=== PATIENT | female | born 1990 | race Caucasian/White ===

== ENCOUNTER 2019-10-16 06:55 | Emergency (ER) | payer BC ==
[2019-10-16 07:11] VITALS: BP 136/97; PULSE 81
[2019-10-16] MEDS ORDERED: Ondansetron 4 MG Tab.DIS PO ONE (07:24)
[2019-10-16] MEDS ORDERED: Alum Hydrox/Mag Hydrox/Simeth 30 ML, Lidocaine 2% 15 ML PO ONE ×2 (07:24)
--- NOTE | 2019-10-16 07:29 | EDM.PDOC ---
ED HPI GENERAL MEDICAL PROBLEM - General Chief Complaint: Abdominal Pain Stated Complaint: ABDOMINAL PAIN AND VOMITING Time Seen by Provider: 10/16/19 07:16 Source of Information: Reports: Patient History Limitations: Reports: No Limitations - History of Present Illness INITIAL COMMENTS - FREE TEXT/NARRATIVE: Patient is a 29-year-old female who presents with complaints of acid reflux, epigastric pain, and vomiting. She states that these symptoms have been going on for quite a while and she recently completed her second round of treatment for H. pylori 2 weeks ago. She states this last treatment was a ten-day course of tetracycline Flagyl and omeprazole. She states that she was feeling slightly better after this course, however she has not been taking any antacids since that time and her symptoms have been progressively getting worse. She states that she called her primary care last night and was given a prescription for omeprazole 40 mg daily. She has not taken this medication because she is concerned that she will vomit it up. She has been able to drink liquids without vomiting, however whenever she eats solid foods she states that she vomits within 30 minutes. When she is sitting up, she does not have any abdominal pain or acid reflux, but she states when lying down the symptoms are much worse. She states that the plan is for her to have an upper endoscopy done if her repeat H-pylori comes back negative and a referral to gastroenterology if the h-pylori is still present.. She does have an appointment with her primary care provider, Aggie Hood, on of next week. - Related Data Allergies Allergy/AdvReac Type Severity Reaction Status Date / Time No Known Allergies Allergy Verified 10/16/19 07:13 Home Meds: Home Meds busPIRone [Buspar] 10 mg PO TID 05/22/18 [History] Spironolactone [Aldactone] 25 mg PO DAILY 09/05/19 [History] Montelukast [Singulair] 10 mg PO DAILY 10/16/19 [History] Ondansetron [Zofran ODT] 4 mg PO Q6H PRN #10 tab.dis 10/16/19 [Rx] Past Medical History - Past Health History Medical/Surgical History: Denies Medical/Surgical History Gastrointestinal History: Reports: GERD Psychiatric History: Reports: Anxiety Endocrine/Metabolic History: Reports: Obesity/BMI 30+ - Past Surgical History Musculoskeletal Surgical History: Reports: Arthroscopic Knee Social & Family History - Caffeine Use Caffeine Use: Reports: None - Living Situation & Occupation Living situation: Reports: Single, with Significant Other (Girlfriend) Occupation: Employed ([employer]) ED ROS GENERAL - Review of Systems Review Of Systems: See Below Constitutional: Reports: No Symptoms HEENT: Reports: Throat Pain Respiratory: Reports: No Symptoms Cardiovascular: Reports: No Symptoms Endocrine: Reports: No Symptoms GI/Abdominal: Reports: Abdominal Pain (epigastric), Nausea, Vomiting : Reports: No Symptoms Musculoskeletal: Reports: No Symptoms Skin: Reports: No Symptoms Neurological: Reports: No Symptoms Psychiatric: Reports: No Symptoms Hematologic/Lymphatic: Reports: No Symptoms Immunologic: Reports: No Symptoms ED EXAM, GI/ABD - Physical Exam Exam: See Below Exam Limited By: No Limitations General Appearance: Alert, WD/WN, No Apparent Distress Throat/Mouth: Normal Inspection, Normal Oropharynx, Normal Voice, No Airway Compromise Head: Atraumatic, Other Respiratory/Chest: No Respiratory Distress, Lungs Clear, Normal Breath Sounds, No Accessory Muscle Use, Chest Non-Tender Cardiovascular: Normal Peripheral Pulses, Regular Rate, Rhythm, No Edema, No Murmur GI/Abdominal Exam: Normal Bowel Sounds, Soft, No Organomegaly, Tender ( epigastric). No: Distended, Guarding, Rigid Neurological: Alert, Oriented, Normal Cognition Psychiatric: Normal Affect, Normal Mood Skin Exam: Warm, Dry, Intact, Normal Color, No Rash Lymphatic: No Adenopathy Course - Vital Signs Last Recorded V/S: Last Vital Signs Temp 97.8 F 10/16/19 07:06 Pulse 81 10/16/19 07:06 Resp 16 10/16/19 07:06 BP 136/97 H 10/16/19 07:06 Pulse Ox 94 L 10/16/19 07:06 - Orders/Labs/Meds Meds: Medications Discontinued Medications Generic Name Dose Route Start Last Admin Trade Name Freq PRN Reason Stop Dose Admin Al Hydroxide/Mg Hydroxide 30 0 ml 10/16/19 07:24 10/16/19 07:30 ml/ Lidocaine HCl 15 ml PO 10/16/19 07:25 45 ml ONETIME ONE Administration Famotidine 20 mg 10/16/19 07:49 10/16/19 07:56 Pepcid PO 10/16/19 07:50 20 mg ONETIME ONE Administration Ondansetron HCl 4 mg 10/16/19 07:24 10/16/19 07:30 Zofran Odt PO 10/16/19 07:25 4 mg ONETIME ONE Administration - Re-Assessments/Exams Free Text/Narrative Re-Assessment/Exam: 10/16/19 07:29 Patient's symptoms are likely caused by her gastritis and GERD. I will start with a GI cocktail and Zofran. We will then give her a dose of Pepcid and have her start her omeprazole that was previously prescribed today. I did discuss that if she does not have relief with the 40 mg of daily omeprazole, she may go up to 40 mg twice daily for a short period until she sees her primary care provider on . 10/16/19 07:50 Patient did have some relief from the GI cocktail and Zofran. I have ordered Pepcid to be given prior to discharge and I'll send a prescription for Zofran to [facility] [place]. Discharge instructions as noted. Departure - Departure Time of Disposition: 07:50 Disposition: Home, Self-Care 01 Condition: Fair Clinical Impression: GERD (gastroesophageal reflux disease) Qualifiers: Esophagitis presence: esophagitis presence not specified Qualified Code(s): K21.9 - Gastro-esophageal reflux disease without esophagitis - Discharge Information *PRESCRIPTION DRUG MONITORING PROGRAM REVIEWED*: No *COPY OF PRESCRIPTION DRUG MONITORING REPORT IN PATIENT KIM: No Prescriptions: Ondansetron [Zofran ODT] 4 mg PO Q6H PRN #10 tab.dis PRN Reason: Nausea/Vomiting Instructions: Heartburn, [id number], Food Choices for Gastroesophageal Reflux Disease, Adult Referrals: Aggie Hood MD [Primary Care Provider] - Forms: ED Department Discharge Additional Instructions: You were seen in the emergency department this morning for epigastric pain, vomiting, and heartburn. GI cocktail, Zofran and Pepcid and did verbalize relief from her symptoms. We would recommend that she start taking the omeprazole that was prescribed by her primary care provider immediately. As we discussed if you're not having relief of symptoms and a couple days, you may increase to twice daily on the omeprazole until you see your primary care provider. Avoid foods that are acidic or spicy. It may also be beneficial to sleep in an upright position. A prescription for Zofran has been sent to [facility] [place]. Use this medication every 6 hours as needed for nausea or vomiting. If you experience any new or worsening symptoms, please do not hesitate to return to the emergency department. Sepsis Event Note - Evaluation Sepsis Screening Result: No Definite Risk - Focused Exam Vital Signs: Vital Signs Temp Pulse Resp BP Pulse Ox 10/16/19 07:06 97.8 F 81 16 136/97 H 94 L Date Exam was Performed: 10/16/19 Time Exam was Performed: 09:13
[2019-10-16] MEDS ORDERED: Famotidine 20 MG Tab PO ONE (07:49)
== END 2019-10-16 08:17 | disposition home or self-care (01) ==
LOC: JD.ED 06:55
DX: K21.9 Gastro-esophageal reflux disease without esophagitis (principal); F41.9 Anxiety disorder, unspecified; E66.9 Obesity, unspecified; Z68.41 Body mass index [BMI] 40.0-44.9, adult; Z79.899 Other long term (current) drug therapy
CPT/HCPCS: 99283; A9270

== ENCOUNTER 2019-11-11 10:25 | Day surgery (SDC) | payer BC ==
[~2019-11-11 10:25] MED LIST: Lactated Ringers 1,000 ML IV SCH; Lidocaine 1%/Sod Bicarbonate in NS 8.4% 1 ML Syringe IDERM PRN; Sodium Chloride 0.9% 10 ML Syringe FLUSH PRN
--- NOTE | 2019-11-11 10:51 | PCM.PREANE ---
Preanesthetic Assessment - Procedure Proposed Procedure: egd - Anesthesia/Transfusion/Family Hx Anesthesia History: Prior Anesthesia Without Reaction Family History of Anesthesia Reaction: No Transfusion History: No Prior Transfusion(s) - Review of Systems General: No Symptoms Pulmonary: No Symptoms Cardiovascular: No Symptoms Gastrointestinal: Abdominal Pain (since h pylori - 1 month ago) Neurological: No Symptoms Other: Reports: Anxiety - Physical Assessment NPO Status Date: 11/10/19 NPO Status Time: 23:00 Vital Signs: 129/77 72 97% 97.5 16 Height: 5 ft 4 in Weight: 112 kg ASA Class: 2 Mental Status: Alert & Oriented x3 Airway Class: Mallampati = 1 Dentition: Reports: Normal Dentition Thyro-Mental Finger Breadths: 3 Mouth Opening Finger Breadths: 3 ROM/Head Extension: Full Lungs: Clear to Auscultation, Normal Respiratory Effort Cardiovascular: Regular Rate, Regular Rhythm - Allergies Allergies/Adverse Reactions: Allergies Allergy/AdvReac Type Severity Reaction Status Date / Time No Known Allergies Allergy Verified 11/10/19 12:30 - Blood Blood Available: No - Acknowledgements Anesthesia Type Planned: MAC Pt an Appropriate Candidate for the Planned Anesthesia: Yes Alternatives and Risks of Anesthesia Discussed w Pt/Guardian: Yes Pt/Guardian Understands and Agrees with Anesthesia Plan: Yes PreAnesthesia Questionnaire - Past Health History Medical/Surgical History: Denies Medical/Surgical History HEENT History: Reports: Other (See Below) Other HEENT History: WEAR GLASSES Cardiovascular History: Reports: None Respiratory History: Reports: Asthma Gastrointestinal History: Reports: GERD, Helicobacter Pylori Genitourinary History: Reports: None [employer] History: Reports: Polycystic Ovaries Neurological History: Reports: None Psychiatric History: Reports: Anxiety Endocrine/Metabolic History: Reports: Obesity/BMI 30+ Hematologic History: Reports: None Immunologic History: Reports: None Oncologic (Cancer) History: Reports: None Dermatologic History: Reports: None - Past Surgical History Head Surgeries/Procedures: Reports: None Cardiovascular Surgical History: Reports: None Respiratory Surgical History: Reports: None GI Surgical History: Reports: None Female Surgical History: Reports: None Male Surgical History: Reports: None Endocrine Surgical History: Reports: None Neurological Surgical History: Reports: None Musculoskeletal Surgical History: Reports: Arthroscopic Knee Oncologic Surgical History: Reports: None Dermatological Surgical History: Reports: None - SUBSTANCE USE Smoking Status *Q: Former Smoker (3 years ago) Tobacco Use Within Last Twelve Months: No Second Hand Smoke Exposure: No Days Per Week of Alcohol Use: 0 Recreational Drug Use History: Yes Recreational Drug Type: Reports: Methamphetamine (in past) - HOME MEDS Home Medications: Home Meds busPIRone [Buspar] 10 mg PO TID 05/22/18 [History] Montelukast [Singulair] 10 mg PO DAILY 10/16/19 [History] Albuterol [Ventolin HFA] 2 puff INH Q6H PRN 11/10/19 [History] Mometasone/Formoterol [Dulera 200-5 MCG] 2 puff INH DAILY 11/10/19 [History] Norgestimate-Ethinyl Estradiol [Ortho Tri-Cyclen 28 Tablet] 1 tab PO DAILY 11/10 [History] Omeprazole 40 mg PO DAILY 11/10/19 [History] Spironolactone 50 mg PO DAILY 11/10/19 [History] - CURRENT (IN HOUSE) MEDS Current Meds: Current Medications Lactated Ringer's (Ringers, Lactated) 1,000 mls @ 125 mls/hr IV ASDIRECTED ZAFAR Stop: 11/11/19 23:00 Lidocaine/Sodium Bicarbonate (Buffered Lidocaine 1% In Ns 8.4%) 0.25 ml IDERM ONETIME PRN PRN Reason: Prior to IV Start Stop: 11/11/19 18:00 Sodium Chloride (Saline Flush) 10 ml FLUSH ASDIRECTED PRN PRN Reason: Keep Vein Open Stop: 11/11/19 18:00
[2019-11-11] MEDS ORDERED: Propofol 200 MG/20 ML SDV ONE (11:53)
[2019-11-11] MEDS ORDERED: Lidocaine 1% 6 ML ONE (11:55)
--- NOTE | 2019-11-11 12:24 | PCM.OPNOTE ---
- General Post-Op/Procedure Note Date of Surgery/Procedure: 11/11/19 Operative Procedure(s): EGD Findings: 1. Gastritis with superficial erosions 2. Hiatal hernia 3. Irregular GE junction 4. Proximal esophagitis Pre Op Diagnosis: GERD and history of recurrent H. pylori infection Post-Op Diagnosis: same Anesthesia Technique: MAC Primary Surgeon: Luann Condon Anesthesia Provider: Gelacio Daugherty Pathology: 1. Gastric antrum 2. GE junction 3. Proximal esophagus Fluid Replacement, Intraop: 500 Output, Urine Amount: 0 EBL in mLs: 0 Complications: none apparent Condition: Good
--- NOTE | 2019-11-11 12:26 | PCM.PRNOTE ---
- Free Text/Narrative Note: Operative Report Date of procedure: November 11, 2019 Preoperative diagnosis: GERD and history of recurrent H. pylori Postoperative diagnosis: Same Surgeon: Luann Condon M.D. Procedure: EGD Anesthesia: MAC Anesthesiologist: Gelacio Daugherty CRNA IV fluids: 500 mL Estimated blood loss: 0 mL Findings: 1. Gastritis with superficial erosions 2. Hiatal hernia 3. Irregular GE junction 4. Proximal esophagitis Specimens: 1. Gastric antrum 2. GE junction 3. Proximal esophagus Indication: The patient is a 29 -year-old lady who presented with GERD symptoms as well as a history of recurrent H. pylori infection. . The patient was consented for an EGD. Risk of bleeding and perforation were discussed. The patient's consent was obtained Description of the procedure: The patient was taken to the endoscopy suite and placed on hemodynamic monitoring. The nurse goldbeater induced MAC anesthesia. A bite block was placed. The patient was positioned in the left lateral decubitus position. A timeout was performed. The endoscope was gently placed into the mouth to the back of the pharynx and introduced into the esophagus. The scope was gently advanced under direct visualization down to the level of the lower esophageal sphincter. The stomach was then entered. Normal rugal folds were noted. The scope was advanced into the antrum. We noted gastritis in the gastric tissues. The pylorus was then entered and the first and second portion of the duodenum was inspected. There were no ulcerations in the duodenum. Biopsies were taken of the gastric antrum with cold biopsy forceps The scope was then retroflexed in the cardia and fundus were investigated. There was some superficial erosion noted in the body of the stomach No other abnormalities were noted. The scope was then withdrawn while inspecting the esophagus. There was a small sliding hiatal hernia with an irregular GE junction. The GE junction was biopsied in 4 quadrants using cold biopsy forceps. There was also esophagitis noted in the proximal esophagus. Biopsies were taken using cold biopsy forceps in the proximal esophagus. The procedure was terminated. the patient tolerated the procedure well without any evidence of complications. Luann Condon MD General Surgery
--- NOTE | 2019-11-11 13:16 | PCM48HPAN ---
Post Anesthesia Note - EVALUATION WITHIN 48HRS OF ANESTHETIC Vital Signs in Normal Range: Yes Patient Participated in Evaluation: Yes Respiratory Function Stable: Yes Airway Patent: Yes Cardiovascular Function Stable: Yes Hydration Status Stable: Yes Pain Control Satisfactory: Yes Nausea and Vomiting Control Satisfactory: Yes Mental Status Recovered: Yes Vital Signs: Last Vital Signs Temp 98.3 F 11/11/19 11:41 Pulse 73 11/11/19 11:41 Resp 16 11/11/19 11:41 BP 131/89 11/11/19 11:41 Pulse Ox 95 11/11/19 11:41
--- NOTE | 2019-11-11 13:20 | PCM48HPAN ---
Post Anesthesia Note - EVALUATION WITHIN 48HRS OF ANESTHETIC Vital Signs in Normal Range: Yes Patient Participated in Evaluation: Yes Respiratory Function Stable: Yes Airway Patent: Yes Cardiovascular Function Stable: Yes Hydration Status Stable: Yes Pain Control Satisfactory: Yes Nausea and Vomiting Control Satisfactory: Yes Mental Status Recovered: Yes Vital Signs: Last Vital Signs Temp 98.3 F 11/11/19 12:24 Pulse 73 11/11/19 12:24 Resp 16 11/11/19 12:24 BP 131/89 11/11/19 12:24 Pulse Ox 95 11/11/19 12:24
[2019-11-11 14:19] VITALS: BP 115/65; PULSE 63
== END 2019-11-11 12:55 | disposition home or self-care (01) ==
LOC: JD.SDS 10:25
PROVIDERS: ATTEND Surgery
DX: K21.0 Gastro-esophageal reflux disease with esophagitis (principal); K29.50 Unspecified chronic gastritis without bleeding; K44.9 Diaphragmatic hernia without obstruction or gangrene; K21.9 Gastro-esophageal reflux disease without esophagitis; J45.909 Unspecified asthma, uncomplicated; F41.9 Anxiety disorder, unspecified; E66.9 Obesity, unspecified; Z86.19 Personal history of other infectious and parasitic diseases; Z80.0 Family history of malignant neoplasm of digestive organs; Z79.899 Other long term (current) drug therapy; Z87.891 Personal history of nicotine dependence; Z68.41 Body mass index [BMI] 40.0-44.9, adult
CPT/HCPCS: 43239; J2001; J2704; J7120; 00731

== ENCOUNTER 2021-07-25 05:40 | Emergency (ER) | payer BC ==
[2021-07-25 06:07] VITALS: BP 149/94; PULSE 55
--- NOTE | 2021-07-25 06:11 | EDM.PDOC ---
ED HPI GENERAL MEDICAL PROBLEM - General Chief Complaint: Respiratory Problem Stated Complaint: SOB/VOMITING Time Seen by Provider: 07/25/21 05:47 Source of Information: Reports: Patient History Limitations: Reports: No Limitations - History of Present Illness INITIAL COMMENTS - FREE TEXT/NARRATIVE: Ms. Amezquita is a very pleasant 31-year-old woman who now presents to the ED stating that she developed bilateral earaches this past , 07/20/2021. She then developed dyspnea, a nonproductive cough, and nausea, vomiting, and watery diarrhea on 07/22/2021. It became painful for her to take deep breaths on 07/23/2021. She was seen at the walk-in clinic on Saturday. She states that no tests were performed, but she was diagnosed with bilateral otitis media, and prescribed both prednisone and Augmentin, which she is still on. She denies recent fever, constipation, or urinary symptoms. In addition to the prednisone and Augmentin, the patient states that she has been taking Mucinex, Roselyn-Chester cough and cold, ibuprofen, and Robitussin, which have not been helping with her symptoms. The patient states that she has had several colleagues at work who have COVID- 19, and that one of them has even . She would like to be checked for COVID- 19. Here in the ED, the patient's initial BP is found to be mildly elevated at 149/94, with bradycardia 55 bpm. She is afebrile, saturating 100% on room air. She appears to be relatively comfortable, in no acute distress. Prior to , the patient reports that she has had about 2 weeks of nausea and occasional vomiting. Otherwise, the patient denies having a recent fever, chills, sore throat, ear pain, nasal or sinus congestion, cough, dyspnea, chest pain, palpitations, constipation, diarrhea, abdominal pain, urinary symptoms, recent weight gain or weight loss, recent bloody bowel movements or black bowel movements, recent joint aches, headaches, or rashes. The patient's PCP is Aggie Hood NP. 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 She has not received a COVID vaccination. - Related Data Allergies Allergy/AdvReac Type Severity Reaction Status Date / Time No Known Allergies Allergy Verified 11/10/19 12:30 Home Meds: Home Meds busPIRone [Buspar] 10 mg PO TID 05/22/18 [History] Albuterol [Ventolin HFA] 2 puff INH Q6H PRN 11/10/19 [History] Omeprazole 40 mg PO DAILY 11/10/19 [History] Spironolactone 50 mg PO DAILY 11/10/19 [History] Amoxicillin/Potassium Clav [Amox-Clav 875-125 mg Tablet] 1 tab PO BID 07/25/21 [History] DULoxetine [Cymbalta] 30 mg PO DAILY 07/25/21 [History] Fluticasone Propionate [Flonase] 2 spray ALON ASDIRECTED 07/25/21 [History] hydrOXYzine HCL [Atarax] 25 mg PO DAILY 07/25/21 [History] lamoTRIgine [Lamotrigine] 25 mg PO 07/25/21 [History] Past Medical History HEENT History: Reports: Impaired Vision (wears glasses) Respiratory History: Reports: Asthma (suspected, not PFT-tested) Gastrointestinal History: Reports: GERD OUTPATIENT PHLEBOTOMIST History: Reports: Polycystic Ovaries Psychiatric History: Reports: Anxiety Endocrine/Metabolic History: Reports: Obesity/BMI 30+ - Past Surgical History Female Surgical History: Reports: Breast Reduction Musculoskeletal Surgical History: Reports: Arthroscopic Knee (right) Social & Family History - Tobacco Use Tobacco Use Status *Q: Current Every Day Tobacco User Years of Tobacco use: 12 Packs/Tins Daily: 0.5 Packs/Tins Daily Comment: Down from 1 ppd Tobacco Use Comment: Started smoking 2008 - Caffeine Use Caffeine Use: Reports: None - Alcohol Use Alcohol Use History: Yes Alcohol Use Frequency: Rarely - Recreational Drug Use Recreational Drug Use: Yes Drug Use in Last 12 Months: No Recreational Drug Type: Reports: Methamphetamine (last snorted, smoked Dec 2016) - Living Situation & Occupation Living situation: Reports: Single, with Significant Other (Girlfriend) Occupation: Employed ([employer]) ED ROS GENERAL - Review of Systems Review Of Systems: Comprehensive ROS is negative, except as noted in HPI. ED EXAM, GENERAL - Physical Exam Exam: See Below Exam Limited By: No Limitations General Appearance: Alert, WD/WN, No Apparent Distress Eye Exam: Bilateral Eye: EOMI, Normal Inspection Ears: Normal External Exam, Hearing Grossly Normal Nose: Normal Inspection Throat/Mouth: Normal Inspection, Normal Lips, Normal Voice, No Airway Compromise Head: Atraumatic, Normocephalic Neck: Normal Inspection, Full Range of Motion Respiratory/Chest: No Respiratory Distress, Lungs Clear, Normal Breath Sounds, No Accessory Muscle Use, Other (Deep inspiration induces cough). No: Decreased Breath Sounds, Crackles, Rhonchi, Wheezing, Stridor, Prolonged Expiration Cardiovascular: Normal Peripheral Pulses, Regular Rate, Rhythm, No Edema, No Gallop, No JVD, No Murmur, No Rub Peripheral Pulses: 3+: Radial (L), Radial (R) GI/Abdominal: Normal Bowel Sounds, Soft, Non-Tender, No Organomegaly, No Distention, No Abnormal Bruit, No Mass Back Exam: Normal Inspection, Full Range of Motion, NT Extremities: Normal Inspection, Normal Range of Motion, No Pedal Edema, Normal Capillary Refill Neurological: Alert, Oriented, Normal Cognition, No Motor/Sensory Deficits Psychiatric: Normal Affect Skin Exam: Warm, Dry, Intact, Normal Color, No Rash Course - Vital Signs Last Recorded V/S: Last Vital Signs Temp 36.1 C 07/25/21 05:59 Pulse 55 L 07/25/21 05:59 Resp 20 07/25/21 05:59 BP 149/94 H 07/25/21 05:59 Pulse Ox 100 07/25/21 05:59 - Orders/Labs/Meds Orders: Active Orders 24 hr Category Date Time Status Chest 1V Frontal [CR] Stat Exams 07/25/21 06:04 Ordered Labs: Laboratory Tests 07/25/21 07/25/21 07/25/21 Range/Units 05:33 06:21 06:21 WBC 10.25 H (3.98-10.04) K/mm3 RBC 4.48 (3.98-5.22) M/mm3 Hgb 13.3 (11.2-15.7) gm/dl Hct 40.4 (34.1-44.9) % MCV 90.2 D (79.4-94.8) fl MCH 29.7 (25.6-32.2) pg MCHC 32.9 (32.2-35.5) g/dl RDW Std Deviation 44.9 (36.4-46.3) fL Plt Count 286 (182-369) K/mm3 MPV 11.1 (9.4-12.3) fl Neutrophils % (Manual) 57 (40-60) % Band Neutrophils % 0 (0-10) % Lymphocytes % (Manual) 35 (20-40) % Atypical Lymphs % 0 % Immat Monocytes % (Man) 0 Monocytes % (Manual) 8 (2-10) % Eosinophils % (Manual) 0 L (0.7-5.8) % Basophils % (Manual) 0 L (0.1-1.2) Metamyelocytes % 0 Myelocytes % 0 Promyelocytes % 0 Blast Cells % 0 Plasma Cell % (Manual) 0 Nucleated RBCs 0.0 % Platelet Estimate Adequate RBC Morph Comment Normal Sodium 135 L (136-145) mEq/L Potassium 3.7 (3.5-5.1) mEq/L Chloride 105 (98-107) mEq/L Carbon Dioxide 20 L (21-32) mEq/L Anion Gap 13.7 (5-15) BUN 21 H (7-18) mg/dL Creatinine 0.8 (0.55-1.02) mg/dL Est Cr Clr Drug Dosing 87.18 mL/min Estimated GFR (MDRD) > 60 (>60) mL/min BUN/Creatinine Ratio 26.3 H (14-18) Glucose 84 (70-99) mg/dL Calcium 8.6 (8.5-10.1) mg/dL Total Bilirubin 0.2 (0.2-1.0) mg/dL AST 15 (15-37) U/L ALT 33 (14-59) U/L Alkaline Phosphatase 49 (46-116) U/L C-Reactive Protein <0.2 (<1.0) mg/dL Total Protein 7.3 (6.4-8.2) g/dl Albumin 3.1 L (3.4-5.0) g/dl Globulin 4.2 gm/dL Albumin/Globulin Ratio 0.7 L (1-2) Influenza Type A RNA Negative (NEGATIVE) Influenza Type B RNA Negative (NEGATIVE) SARS-CoV-2 RNA (QUE) Negative (NEGATIVE) - Re-Assessments/Exams Free Text/Narrative Re-Assessment/Exam: 07/25/21 06:05 A swab for the SARS-CoV-2 virus and influenza A + B viruses was collected at triage. I have ordered a CBC, CMP, CRP, and portable chest x-ray. 07/25/21 06:59 Portable chest radiograph appears to be grossly normal. The cardiac silhouette is within normal limits. No pulmonary vascular congestion. No pleural effusions seen on this AP view. No focal infiltrate. No pneumothorax. Formal read per the Radiologist pending. 07/25/21 07:04 The patient's CBC is remarkable for mild leukocytosis of 10.25, but with 0% bandemia, and the remainder of her CBC being unremarkable. Her CMP is remarkable for slight hyponatremia of 135, a bicarbonate mildly depressed at 20, and a BUN slightly elevated at 21 with a Cr normal at 0.8, and the remainder of her CMP being unremarkable. Her CRP is undetectably low. 07/25/21 07:09 Test results discussed with the patient. As above, today's work-up is grossly unremarkable, however, I explained that it is possible that she has COVID-19, but that it is too early for her to test positive. I recommended that she isolate for the next 2 days, then get retested. If she is still negative in a few days, then she is really negative, but if she is positive, then she will need to remain isolated until about 10 days after the onset of her symptoms. I recommended that she stay adequately hydrated and take OTC ibuprofen as needed for discomfort, but I advised against her continuing to take Mucinex, Roselyn- Chester cough and cold, and Robitussin, as they have been shown to be of no benefit, but do have side effects, such as an upset stomach. Departure - Departure Time of Disposition: 07:10 Disposition: Home, Self-Care 01 Condition: Good Clinical Impression: Cough, Dyspnea - Discharge Information *PRESCRIPTION DRUG MONITORING PROGRAM REVIEWED*: Not Applicable *COPY OF PRESCRIPTION DRUG MONITORING REPORT IN PATIENT KIM: Not Applicable Referrals: Aggie Hood NP [Primary Care Provider] - Belle Lehman NP [Ordering Only Provider] - Forms: ED Department Discharge, ED Return to Work/School Form Additional Instructions: You were seen in the emergency room after developing a cough and shortness of breath with nausea, vomiting, and diarrhea on Saturday. Work-up in the ER included several blood tests, a swab for the SARS-CoV-2 virus and influenza A + B viruses, and a chest x-ray. Your entire work-up was unremarkable. As discussed, it is still possible that you have COVID-19, even though you tested negative, as it may take several days for there to be enough virus build up to test positive. We therefore recommend that you strictly isolate for the next few days, then get retested on 07/28/2021. If you are negative at that time, then you can be certain that you do not have COVID-19. If you test positive on 07/28/2021, you need to remain isolated until about 10 days after the onset of your symptoms, at which time you should again retest. Do not break isolation until you retest negative. Stay adequately hydrated. You may take [id number] ibuprofen as needed for discomfort, however, we recommend that you not continue to take Mucinex, Roselyn-Chester cough and cold, Robitussin, as these have been shown to be of no benefit, but do have side effects, such as an upset stomach. A note to be off work through 07/29/2021 has been provided. If any other problems, including worsening of your symptoms, please do not hesitate to return to the ER. Sepsis Event Note (ED) - Evaluation Sepsis Screening Result: No Definite Risk - Focused Exam Vital Signs: Vital Signs Temp Pulse Resp BP Pulse Ox 07/25/21 05:59 36.1 C 55 L 20 149/94 H 100 - My Orders Last 24 Hours: My Active Orders 07/25/21 06:04 Chest 1V Frontal [CR] Stat - Assessment/Plan Last 24 Hours: My Active Orders 07/25/21 06:04 Chest 1V Frontal [CR] Stat
[2021-07-25 06:42] LABS: CORONAVIRUS COVID-19 NAA NEGATIVE (NEGATIVE)
--- NOTE | 2021-07-25 07:28 | CR ---
Chest: Frontal view of the chest was obtained. Comparison: Prior chest x-ray of 11/12/15. Heart size and mediastinum are normal. Lungs are clear with no acute parenchymal change. No acute osseous abnormality is seen. Impression: 1. Nothing acute is seen on frontal chest x-ray. Diagnostic code #1
== END 2021-07-25 07:23 | disposition home or self-care (01) ==
LOC: JD.ED 05:40
DX: R05.9 Cough, unspecified (principal); R06.00 Dyspnea, unspecified; K21.9 Gastro-esophageal reflux disease without esophagitis; F17.210 Nicotine dependence, cigarettes, uncomplicated; Z79.899 Other long term (current) drug therapy; Z20.822 Contact with and (suspected) exposure to COVID-19
CPT/HCPCS: 0240U; 36415; 71045; 80053; 85007; 85027; 86140; 99285